=== PATIENT | male | born 1950 | race African-American/Black ===

== ENCOUNTER 2016-11-26 18:13 | Emergency (ER) | payer OTHER ==
[~2016-11-26] VITALS: Ht 180.3 cm; Wt 103.4 kg
[~2016-11-26 18:13] MED LIST: ACETAMINOPHEN325 MG PO; ACYCLOVIR 800800 MG PO; ASA5UEC PO; ASPIR 8181 MG PO; ASPIRIN EC325 M1 PO; ASPIRIN EC81 M1 PO; ASPIRIN325 PO; ATENOLOL 100MG100 M2 PO; ATENOLOL 100MG100 MG PO; ATIVAN1 MG PO; ATORVASTATIN CA20 MG PO; BACTRIM DS TAB1 EACH PO; BENTYL10 MG PO; CARAFATE 1 GM TA1 G1 PO; CARISOPRODOL 3350 MG PO; CELEXA20 MG PO; CHLORTHALIDONE25 MG PO; CLONIDINE-TTS0.3 MG TRANSDERM; CLONIDINE0.1 PO; COLACE100 MG PO; COZAAR 50 MG TA50 M2 PO; CYMBALTA60 MG PO; DESYREL100 MG PO; DIAZEPAM 5 MG5 M1 PO; DIOVAN320 MG PO; DOXYCYCLINE 10100 M1 PO; DULCOLAX5 MG PO; ERYTHROCIN STE250 MG PO; FAMVIR500 MG PO; FLEXERIL PO; GABAPENTIN100 MG PO; HUMALOG100 UNIT/1 SUBQ; HYDRALAZINE 5050 M1 OR; INDOMETHACIN 2525 MG PO; KEFLEX500 MG PO; KLONOPIN0.5 MG PO; LANTUS SC; LANTUS SUBQ; LANTUS100 UNIT/M SUBQ; LOPRESSOR 50 MG50 M1; LOPRESSOR PO; LOPRESSOR25 PO; LYRICA 50 MG50 MG PO; MIRTAZAPINE15 MG PO; MOBIC15 MG PO; NAPROSYN375 MG PO; NEURONTIN 300300 M1 PO; NEXIUM 40 MG CA40 M1 PO; NEXIUM PO; NEXIUM40 MG PO; NITROGLYCERIN0.4 MG SL; NORCO 10-325 T1 EAC1 PO; NORCO 10-325 T1 EACH PO; NORCO 5-325 TA1 EACH PO; NORVASC 5 MG TAB5 MG PO; NORVASC10 MG PO; NOVOLOG100 UNIT/1 SQ; NOVOLOG100 UNIT/1 SUBQ; OXYIR 5 MG CAPSU5 M1 PO; PAIN RELIEF PM1 EAC2 PO; PERCOCET 5-3251 EACH PO; PHENERGAN 25 MG25 M1 PO; PHENERGAN 25 MG25 MG PO; PHENERGAN50 MG RC; PRINIVIL10 MG PO; PROMETHAZINE HC50 M1 PO; PROMETHAZINE PO; REGLAN 10 MG TA10 MG PO; REMERON 30 MG T30 M1; REMERON 30 MG T30 M1 PO; REMERON15 MG PO; SIMVASTATIN40 MG PO; TIZANIDINE HCL4 M1 PO; TIZANIDINE HCL4 MG PO; TOPAMAX 100 MG100 MG PO; TOPAMAX200 MG PO; TOPROL XL25 MG PO; TRAMADOL 50 MG50 MG PO; ULTRAM 50MG TAB50 MG PO; VALSARTAN-HCTZ1 EAC4 PO; VERAPAMIL ER120 MG PO; VICODIN 5-5001 EACH PO; VICOPROFEN 2001 EACH PO; XARELTO15 MG PO; XARELTO20 MG PO; ZANAFLEX4 MG PO; ZOCOR40 MG PO; ZOFRAN ODT4 MG PO; ZYPREXA 10 MG T10 MG PO
[2016-11-26 18:56] LABS: URINE BILIRUBIN NEGATIVE (Negative); URINE BLOOD 3+ (Negative); URINE COLOR YELLOW; URINE GLUCOSE-RANDOM* 2+ (Negative); URINE KETONES TRACE (Negative); URINE LEUKOCYTES-REFLEX NEGATIVE (Negative); URINE PROTEIN (DIPSTICK) 2+ (Negative); URINE SPECIFIC GRAVITY >= 1.030 (1.003-1.035); URINE UROBILINOGEN 0.2 E.U./dl (0.2-1.0)
[2016-11-26 19:08] LABS: CASTS None Seen /LPF (None Seen); CRYSTALS None Seen /LPF (None Seen); SQUAMOUS None Seen /LPF (0-3); URINE RBC 0-2 Rare /HPF (0-2); URINE WBC-REFLEX 6-15 Few /HPF (0-5)
[2016-11-26 19:38] LABS: CALCIUM 9.2 mg/dL (8.5-10.1); CREATININE 1.7 mg/dL (0.7-1.3); POTASSIUM 4.3 mmol/L (3.5-5.1)
[2016-11-26 19:39] LABS: HEMATOCRIT 36.2 % (42.0-52.0); MCH 29.4 pg (26.0-34.0); MCHC 35.8 g/dL (28.0-37.0); MCV 82.2 fL (80.0-100.0); RBC 4.41 mil/uL (4.50-6.00); RDW 13.8 % (10.5-14.5); WBC 16.1 thou/uL (4.0-11.0)
[2016-11-26 19:41] LABS: MANUAL DIFF YES
[2016-11-26 19:44] LABS: DIRECT BILIRUBIN 0.3 mg/dL (<0.1-0.3); TOTAL BILIRUBIN 1.5 mg/dL (<0.1-1.0); TOTAL PROTEIN 8.5 g/dL (6.4-8.2)
[2016-11-26] MEDS ORDERED: HYDROCHLOROTHIA25 M2 PO (19:59)
[2016-11-26] MEDS ORDERED: AMBIEN 5 MG TABL5 M1 PO (20:00)
[2016-11-26] MEDS ORDERED: CARVEDILOL12.5 MG PO (20:01)
[2016-11-26] MEDS ORDERED: PHENERGAN 25 MG25 M1 PO ×2 (20:01→21:40)
[2016-11-26 20:02] LABS: ABSOLUTE NEUTROPHILS 13.7 thou/uL (1.4-8.2); ANISOCYTOSIS 1+; TOTAL CELL COUNT 100
[2016-11-26] MEDS ORDERED: LANTUS SOL100 UNIT/1 SUBQ (20:02)
[2016-11-26 20:03] LABS: POLYCHROMASIA OCCASIONAL
[2016-11-26 20:16] LABS: PLATELET COUNT 179 thou/uL (150-400)
[2016-11-26] MEDS ORDERED: PEPCID20 MG PO (21:40)
[2016-11-26] MEDS ORDERED: KEFLEX500 MG PO (21:40)
== END 2016-11-26 22:25 | disposition home or self-care (01) ==
LOC: ER 18:13
PROVIDERS: Emergency Medicine
DX: N39.0 Urinary tract infection, site not specified (principal); I10 Essential (primary) hypertension; E78.5 Hyperlipidemia, unspecified; K21.9 Gastro-esophageal reflux disease without esophagitis; I25.2 Old myocardial infarction; E11.40 Type 2 diabetes mellitus with diabetic neuropathy, unspecified; F32.9 Major depressive disorder, single episode, unspecified; M10.9 Gout, unspecified; M19.90 Unspecified osteoarthritis, unspecified site; Z88.5 Allergy status to narcotic agent; Z86.19 Personal history of other infectious and parasitic diseases; Z90.49 Acquired absence of other specified parts of digestive tract; Z95.5 Presence of coronary angioplasty implant and graft; Z88.8 Allergy status to other drugs, medicaments and biological substances; Z87.891 Personal history of nicotine dependence; Z79.4 Long term (current) use of insulin

== ENCOUNTER 2016-11-29 17:15 | Inpatient (IN) | payer OTHER ==
[~2016-11-29] VITALS: Ht 180.3 cm; Wt 107.0 kg
--- NOTE | ~2016-11-29 | HC ---
[facility] [place] [address] CONSULTATION Name: AUGUSTUSNELI Brad Room #: 311-P [facility] IN .R.#: [id number] Admission: 11/29/16 Attend Phys: Sean Acevedo MD Discharge: Date of : 54 Report #: [id number] THIS REPORT FOR: //name// CC: Devin Acevedo REASON FOR CONSULTATION: Acute kidney injury. REASON FOR PRESENTATION: Abdominal pain and diarrhea/ HISTORY OF PRESENT ILLNESS: This 66-year-old with past medical history of hypertension, diabetes mellitus, hyperlipidemia. He had GI illness in the form of nausea, vomiting, diarrhea and was taking losartan, hydrochlorothiazide when he presented to the emergency room. He had an extremely low blood pressure readings, he had a creatinine of 1.7 when he presented to the Emergency Room; however, he went on for about 8 hours without IV fluid and his creatinine had risen up to 4.7 thus mandating a nephrology consultation. Looking back at his trend the patient's creatinine back in 2016 was around 1.4. Other than the hypertension, there were no other nephrotoxins. The patient was admitted for further evaluation and management of his GI illnesses and I was asked to evaluate. PAST MEDICAL HISTORY: 1. Hypertension. 2. Diabetes mellitus. 3. Hyperlipidemia. 4. Status post vocal cord polyp removal. 5. Hepatitis C. 6. Diabetic neuropathy. 7. Coronary artery disease. 8. Appendectomy. 9. Depression. 10. Status post cholecystectomy. SOCIAL HISTORY: No drug or alcohol abuse. Former smoker. He quit a while ago. REVIEW OF SYSTEMS: GENERAL: Significant for dizziness and unsteadiness. CARDIOVASCULAR: No chest pain or palpitation. PULMONARY: No cough or hemoptysis. GASTROINTESTINAL: As per the history of present illness. GENITOURINARY: Decreased urine output. MUSCULOSKELETAL: No morning stiffness. PHYSICAL EXAMINATION: GENERAL: He is alert, oriented. VITAL SIGNS: Blood pressure is up to 170/93. [facility] [address] [place] [address] CONSULTATION Name: NELI COFFMAN Room #: 311-P [facility] IN [facility].#: [id number] Admission: 11/29/16 Attend Phys: Sean Acevedo MD Discharge: Date of : 54 Report #: [id number] HEAD AND NECK: No jugular venous distention, no bruit, no thyromegaly. CHEST: Clear to auscultation bilaterally. CARDIOVASCULAR: No rub detected. ABDOMEN: Slight tenderness, no guarding, no rigidity. LOWER EXTREMITIES: No edema. LABORATORY VALUES: Reviewed. His creatinine from today was pending; however, creatinine from yesterday was 4.7. ASSESSMENT, IMPRESSION AND PLAN: 1. Acute kidney injury. 2. Chronic kidney disease. 3. Hypertension. 4. Diabetes mellitus. 5. Gastrointestinal illness. 6. The patient's acute kidney injury is well explained by his hypovolemia. His blood pressure is better with normal saline running right now. I will reduce the dose of his normal saline. I will stop his losartan, hydrochlorothiazide, any other offending agents. 7. Gastrointestinal workup for his gastrointestinal illness. 8. Avoid hypertension. 9. Strict input and output. 10. Once his kidney function stabilizes, I will gently reintroduce his blood pressure medications. <ELECTRONICALLY SIGNED> By: Cele Freeman MD 12/02/16818 5 53 Cele Freeman MD /nt
--- NOTE | ~2016-11-29 | EKG ---
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
[~2016-11-29 17:15] MED LIST changes: +AMBIEN 5 MG TABL5 M1 PO; +CARVEDILOL12.5 MG PO; +HYDROCHLOROTHIA25 M2 PO; +LANTUS SOL100 UNIT/1 SUBQ; +PEPCID20 MG PO
[2016-11-29 17:17] VITALS: BP 99/51
[2016-11-29 17:52] LABS: HEMATOCRIT 30.6 % (42.0-52.0); MCH 28.8 pg (26.0-34.0); MCHC 35.5 g/dL (28.0-37.0); PLATELET COUNT 207 thou/uL (150-400); RBC 3.78 mil/uL (4.50-6.00); WBC 9.7 thou/uL (4.0-11.0)
[2016-11-29 17:53] LABS: HEMOGLOBIN 10.9 gm/dL (14.0-18.0)
[2016-11-29 17:54] LABS: MANUAL DIFF YES
[2016-11-29 17:56] LABS: ANION GAP 13 mmol/L (7-16); BUN 66 mg/dL (7-18); CALCIUM 8.4 mg/dL (8.5-10.1); CHLORIDE 87 mmol/L (98-107); CO2 24 mmol/L (21-32); GLUCOSE 349 mg/dL (74-106); POTASSIUM 3.2 mmol/L (3.5-5.1); SODIUM 124 mmol/L (136-145)
[2016-11-29 18:04] LABS: ALBUMIN 2.7 g/dL (3.4-5.0); ALKALINE PHOSPHATASE 170 U/L (46-116); SGOT 307 U/L (15-37); SGPT 175 U/L (30-65); TOTAL BILIRUBIN 0.6 mg/dL (<0.1-1.0); TOTAL PROTEIN 7.6 g/dL (6.4-8.2); TROPONIN-I < 0.04 ng/mL (<0.04-0.07)
[2016-11-29 18:15] LABS: TOTAL CELL COUNT 100
[2016-11-29 19:53] VITALS: BP 82/52
[2016-11-29 21:10] VITALS: BP 96/52
[2016-11-29 21:20] VITALS: BP 116/69
[2016-11-29 23:29] VITALS: BP 112/57
[2016-11-30 04:45] VITALS: BP 121/75
[2016-11-30 04:46] LABS: HEMATOCRIT 30.3 % (42.0-52.0); HEMOGLOBIN 10.6 gm/dL (14.0-18.0); MCH 28.6 pg (26.0-34.0); MCV 81.9 fL (80.0-100.0); RBC 3.7 mil/uL (4.50-6.00); RDW 13.8 % (10.5-14.5); WBC 7.4 thou/uL (4.0-11.0)
[2016-11-30 05:06] LABS: ALBUMIN 2.3 g/dL (3.4-5.0); CALCIUM 7.7 mg/dL (8.5-10.1); CREATININE 4.7 mg/dL (0.7-1.3); TOTAL BILIRUBIN 0.5 mg/dL (<0.1-1.0); TOTAL PROTEIN 6.6 g/dL (6.4-8.2)
[2016-11-30 05:14] LABS: POTASSIUM 2.9 mmol/L (3.5-5.1)
[2016-11-30 08:35] LABS: URINE BILIRUBIN NEGATIVE (Negative); URINE BLOOD 1+ (Negative); URINE COLOR YELLOW; URINE GLUCOSE-RANDOM* NEGATIVE (Negative); URINE KETONES NEGATIVE (Negative); URINE LEUKOCYTES-REFLEX NEGATIVE (Negative); URINE PROTEIN (DIPSTICK) 1+ (Negative); URINE UROBILINOGEN 0.2 E.U./dl (0.2-1.0)
[2016-11-30 08:44] VITALS: BP 151/89
[2016-11-30 08:50] LABS: AMP/METHAMP Negative (Negative); BARBITURATES Negative (Negative); BENZODIAZEPINES Negative (Negative); COCAINE Negative (Negative); METHADONE Negative (Negative); OPIATES Negative (Negative); PCP Negative (Negative); THC Negative (Negative)
[2016-11-30 09:15] LABS: CASTS None Seen /LPF (None Seen); CRYSTALS None Seen /LPF (None Seen); SQUAMOUS 0-3 Few /LPF (0-3); URINE RBC 0-2 Rare /HPF (0-2); URINE WBC-REFLEX 0-5 Rare /HPF (0-5)
[2016-11-30 16:08] VITALS: BP 126/70
[2016-11-30 17:06] LABS: HEPATITIS C VIRUS AB >11.0 (0.0-0.9)
[2016-11-30 18:32] LABS: URINE BILIRUBIN NEGATIVE (Negative); URINE BLOOD 1+ (Negative); URINE COLOR YELLOW; URINE GLUCOSE-RANDOM* NEGATIVE (Negative); URINE KETONES NEGATIVE (Negative); URINE NITRITE NEGATIVE (Negative); URINE PROTEIN (DIPSTICK) NEGATIVE (Negative); URINE UROBILINOGEN 0.2 E.U./dl (0.2-1.0)
[2016-11-30 18:38] LABS: URINE CREATININE-RANDOM* 71.7 mg/dL
[2016-11-30 18:50] LABS: BACTERIA None Seen /HPF (None Seen); CASTS None Seen /LPF (None Seen); CRYSTALS None Seen /LPF (None Seen); SQUAMOUS 0-3 Few /LPF (0-3); URINE RBC 3-10 Few /HPF (0-2); URINE WBC 0-5 Rare /HPF (0-5)
[2016-12-01 05:15] VITALS: BP 168/93
[2016-12-01 07:28] VITALS: BP 176/93
[2016-12-01 08:00] VITALS: BP 176/93
[2016-12-01 10:06] LABS: CALCIUM 6.8 mg/dL (8.5-10.1); POTASSIUM 3.4 mmol/L (3.5-5.1)
[2016-12-01 10:08] LABS: CREATININE 2.3 mg/dL (0.7-1.3)
[2016-12-01 10:12] LABS: ALBUMIN 2.1 g/dL (3.4-5.0); TOTAL BILIRUBIN 0.3 mg/dL (<0.1-1.0); TOTAL PROTEIN 5.9 g/dL (6.4-8.2)
[2016-12-01 15:17] VITALS: BP 124/66
[2016-12-01 19:38] VITALS: BP 146/72
[2016-12-02 03:27] VITALS: BP 164/85
[2016-12-02 07:08] LABS: ALBUMIN 2.4 g/dL (3.4-5.0); CALCIUM 8.4 mg/dL (8.5-10.1); CREATININE 1.6 mg/dL (0.7-1.3); POTASSIUM 3.7 mmol/L (3.5-5.1)
[2016-12-02 07:41] VITALS: BP 171/96
[2016-12-02 10:12] VITALS: BP 171/96
[2016-12-02 15:16] VITALS: BP 171/96
[2016-12-02 15:49] VITALS: BP 171/96
== END 2016-12-02 16:10 | disposition home or self-care (01) | DRG 682 ==
LOC: ER 17:15 → EROBS 18:49 → ER 18:49 → EROBS 19:56 → 3N 19:56 → ENTRNSPT 12-02 15:52 → EDTRNSPTSTS 12-02 15:53 → 3N 12-02 16:10
PROVIDERS: Hospitalist; Internal Medicine; Physician Assistant
PROC: 02H633Z Insertion of Infusion Device into Right Atrium, Percutaneous Approach (ICD-10-PCS; principal; 2016-11-30)
DX: N17.0 Acute kidney failure with tubular necrosis (principal); E43 Unspecified severe protein-calorie malnutrition; E87.1 Hypo-osmolality and hyponatremia; N18.3 Chronic kidney disease, stage 3 (moderate); E78.5 Hyperlipidemia, unspecified; K21.9 Gastro-esophageal reflux disease without esophagitis; E11.40 Type 2 diabetes mellitus with diabetic neuropathy, unspecified; F32.9 Major depressive disorder, single episode, unspecified; M10.9 Gout, unspecified; E86.0 Dehydration; I12.9 Hypertensive chronic kidney disease with stage 1 through stage 4 chronic kidney disease, or unspecified chronic kidney disease; E11.22 Type 2 diabetes mellitus with diabetic chronic kidney disease; I95.9 Hypotension, unspecified; E87.8 Other disorders of electrolyte and fluid balance, not elsewhere classified; R74.0 Nonspecific elevation of levels of transaminase and lactic acid dehydrogenase [LDH]; I25.10 Atherosclerotic heart disease of native coronary artery without angina pectoris; I25.2 Old myocardial infarction; Z90.89 Acquired absence of other organs; Z90.49 Acquired absence of other specified parts of digestive tract; Z95.1 Presence of aortocoronary bypass graft; Z88.8 Allergy status to other drugs, medicaments and biological substances; Z87.891 Personal history of nicotine dependence
CPT/HCPCS: 10096

== ENCOUNTER 2016-12-14 16:06 | Inpatient (IN) | payer OTHER ==
[~2016-12-14] VITALS: Ht 180.3 cm; Wt 109.8 kg
--- NOTE | ~2016-12-14 | EEG ---
[facility] [place] [address] ELECTROENCEPHALOGRAM Name: NELI COFFMAN Room #: 439-P [facility] IN M.R.#: [id number] Admission: 12/14/16 Attend Phys: Ariel Nixon DO Discharge: 12/20/16 Date of : 54 Report #: [id number] THIS REPORT FOR: //name// CC: Devin Nixon DATE OF SERVICE: 12/18/2016 This patient is being evaluated for syncope. EEG was done by placing the electrodes by standard 10-20 system of electrode placement. Both referential and sequential montages were used for recording. Background activity appeared to be about 10-11 Hz and 40 microvolts. It is a symmetrical activity. Photic stimulation was unremarkable. The patient appeared to be asleep during part of this EEG and that is associated with bilateral slowing and vertex sharp waves. Throughout the record, no active epileptiform activity was noticed. IMPRESSION: Mild intermixed theta range slowing, which is a nonspecific finding which can occur with drowsiness, effect of psychotropic medication, encephalopathy, etc. It is a nonspecific and mild finding. No active epileptiform activity was noticed. Thank you very much for this referral and if you have any questions, please feel free to contact me. <ELECTRONICALLY SIGNED> By: Sonny Gudino MD 12/23/16 0908 [id number] 42 Sonny Gudino MD /edwar
--- NOTE | ~2016-12-14 | 2DMMODE ---
[facility] [address] [place] [address] 2 D/M-MODE ECHOCARDIOGRAM Name: NELI COFFMAN Room #: 439-P [facility] IN ..#: [id number] Admission: 12/14/16 Attend Phys: Ariel Nixon, Discharge: Date of : 54 Date of Service: 12/19/16 1324 Report #: [id number] THIS REPORT FOR: //name// APPROVED REPORT Study performed: 12/19/2016 12:40:33 EXAM: Comprehensive 2D, Doppler, and color-flow Echocardiogram Patient Location: Echo lab Room #: 439 Status: routine BSA: 2.29 HR: 100 bpm BP: 177/88 mmHg Rhythm: Tachycardia Other Information Study Quality: Adequate Indications Syncope Hx: WA, CABG, stents, HTN, HLP, DM 2D Dimensions RVDd: 36.55 mm LVEF(%): 53.47 (>50%) IVSd: 13.07 (7-11mm) LVOT Diam: 23.89 (18-24mm) LVDd: 41.73 mm PWd: 11.54 (7-11mm) Ascending Ao: 37.48 (22-36mm) LVDs: 30.35 (25-40mm) Aortic Root: 36.37 mm Farrell's LVEF: 53.47 % Volumes Left Atrial Volume (Systole) Single Plane 4CH: 84.88 mL Single Plane 2CH: 63.56 mL LA ESV Index: 35.00 mL/m2 Aortic Valve AoV Peak Omkar.: 1.58 m/s AO Peak Gr.: 10.01 mmHg LVOT Max P.08 mmHg LVOT Max V: 1.23 m/s SLIM Vmax: 3.49 cm2 Mitral Valve E/A Ratio: 0.6 [facility] [place] [address] 2 D/M-MODE ECHOCARDIOGRAM Name: NELI COFFMAN Room #: 439-P [facility] IN .R.#: [id number] Admission: 12/14/16 Attend Phys: Ariel Nixon, Discharge: Date of : 54 Date of Service: 12/19/16 1324 Report #: [id number] MV Decel. Time: 207.94 ms MV E Max Omkar.: 0.58 m/s MV A Omkar.: 0.96 m/s MV PHT: 60.30 ms IVRT: 55.36 ms Pulmonary Valve PV Peak Omkar.: 1.39 m/s PV Peak Gr.: 7.72 mmHg Pulmonary Vein P Vein S: 0.53 m/s P Vein A: 0.36 m/s P Vein D: 0.33 m/s P Vein A Dur.: 87.7 msec P Vein S/D Ratio: 1.61 Tricuspid Valve TR Peak Omkar.: 3.09 m/s RAP Estimate: 5.00 mmHg TR Peak Gr.: 38.20 mmHg PA Pressure: 43.00 mmHg Left Ventricle The left ventricle is normal size. There is normal LV segmental wall motion. Mild concentric left ventricular hypertrophy. Left ventricular systolic function is normal. LVEF is 60%. Mild diastolic dysfunction is present (impaired relaxation pattern). Right Ventricle The right ventricle is normal size. The right ventricular systolic function is normal. Atria Left atrium is mildly dilated. The right atrium size is normal. Aortic Valve The aortic valve is normal in structure. No aortic regurgitation is present. There is no aortic valvular stenosis. Mitral Valve The mitral valve is normal in structure. Trace mitral regurgitation. Tricuspid Valve The tricuspid valve is normal in structure. Trace tricuspid regurgitation. Estimated PAP is 40-45mmHg. Pulmonic Valve [address] [address] 2 D/M-MODE ECHOCARDIOGRAM Name: NELI COFFMAN Room #: 439-P [facility] IN [facility]#: [id number] Admission: 12/14/16 Attend Phys: Ariel Nixon, Discharge: Date of : 54 Date of Service: 12/19/16 1324 Report #: [id number] The pulmonary valve is normal in structure. Trace pulmonic regurgitation. Great Vessels The aortic root is normal in size. The ascending aorta is normal in size. IVC is normal in size and collapses >50% with inspiration. Pericardium There is no pericardial effusion. <Conclusion> The left ventricle is normal size. LVEF is 60%. Left atrium is mildly dilated. The aortic valve is normal in structure. The mitral valve is normal in structure. Trace mitral regurgitation. The tricuspid valve is normal in structure. Trace tricuspid regurgitation. Estimated PAP is 40-45mmHg. The pulmonary valve is normal in structure. Trace pulmonic regurgitation. <ELECTRONICALLY SIGNED> By: Devang Samano MD 12/19/16 1324 132 Devang Samano MD /INF
--- NOTE | ~2016-12-14 | P ---
[facility] [place] [address] PROCEDURE REPORT Name: NELI COFFMAN Room #: 439-P [facility] IN M.R.#: [id number] Admission: 12/14/16 Attend Phys: Ariel Nixon DO Discharge: Date of : 54 Report #: [id number] THIS REPORT FOR: //name// CC: Devin Nixon DATE OF SERVICE: 12/15/2016 INPATIENT UPPER ENDOSCOPY BRIEF HISTORY: The patient is a 66-year-old male with multiple medical problems including reflux and previous surgeries. The patient tells me he has had antireflux procedures with first in the 1970s and most recent about 2008. He has intermittent dysphagia and has been seen by multiple gastroenterologists with previous endoscopies and esophageal dilations. At this time, he describes nausea, vomiting, he described dysphagia. He also has diabetes. He recently had severe nausea and vomiting resulting in acute kidney injury requiring hydration. PREOPERATIVE DIAGNOSIS: Dysphagia, nausea and vomiting. POSTOPERATIVE DIAGNOSES: 1. Moderate diffuse antral gastritis. 2. Changes of gastroesophageal junction consistent with previous surgery. 3. Dysphagia. 4. Small hiatus hernia. 5. Retained liquids within stomach. MEDICATIONS: Deep sedation with propofol per anesthesia. SPECIMEN: Biopsies of gastritis. ESTIMATED BLOOD LOSS: 3 mL. PROCEDURE: Esophagogastroduodenoscopy with esophageal dilation over a wire. FINDINGS: Prior to propofol sedation, procedure of upper endoscopy discussed with the patient as well as potential risks and its complications. He indicates he understands and desires to proceed. DESCRIPTION OF PROCEDURE: With the patient in left lateral decubitus position, the Fuji video endoscope was inserted in the cervical esophagus under direct vision without difficulty. Examination of this organ through its entire length revealed normal esophageal mucosa. As we advanced the scope, he was noted to have ____. However, the esophagus was not dilated. In addition, a small hiatus [facility] [address] [place] [address] PROCEDURE REPORT Name: NELI COFFMAN Room #: 439-P [facility] IN [facility].#: [id number] Admission: 12/14/16 Attend Phys: Ariel Nixon DO Discharge: Date of : 54 Report #: [id number] hernia of about 2 cm was seen. The squamocolumnar junction was normal. No ulcers, erosions, strictures or masses of Olvera mucosa was seen. The scope passed easily through the diaphragmatic hiatus into the stomach. Examination of the stomach did reveal some retained liquids within the stomach, which was aspirated away. It was bilious in color. After removal of the fluid from the stomach, the stomach was examined on end view as well as retroflexed views. There was a diffuse gastritis. No ulcers or erosions were seen. There was no evidence of outlet obstruction. Upon retroflexion of the scope, the folds in the cardia of the stomach appeared to be irregular consistent with previous surgery. Scope was advanced across the pylorus was unremarkable. There is no evidence of outlet obstruction. The scope was advanced down about the third portion of duodenum, which appeared to be unremarkable. Again, there is no evidence of obstruction. At that point, the scope was slowly withdrawn and careful circumferential views were obtained. In addition, a guidewire was passed through the biopsy channel of the scope, and the scope was withdrawn over the guidewire. After removal of the scope, he was dilated with passage of 51-Cameroonian Savary dilator over the wire. This is similar to what has been done in the past. The patient tolerated the procedure well. DISPOSITION: The patient with nausea, vomiting, dysphagia. He reports he has had success with dilation in the past. He has had previous surgeries as noted above. We will see how he does following dilation today. There was a fair amount of fluid in the stomach, so we will obtain a gastric emptying study for further evaluation. He should return for dilation on an as needed basis. He should take his acid suppression, which is helpful to control his reflux symptoms in spite of his multiple surgeries. <ELECTRONICALLY SIGNED> By: Avinash Tapia MD 12/15/16 1949 1445 185 Avinash Tapia MD /nt
--- NOTE | ~2016-12-14 | S ---
[facility] [place] [address] SURGICAL PATH RPT PROCEDURE Name: NELI LOTT Room #: 439-P ADM IN M.R.#: [id number] Admission: 12/14/16 Date of : 54 Discharge: Report #: [id number] Path Case #: [id number] PATHOLOGY REPORT COLLECTION DATE: 12/15/2016 RECEIVED DATE: 12/15/2016 SUBMITTING PHYS: Dr. Avinash Tapia OTHER PHYS: Dr. Ariel Arias SPECIMEN(S) RECEIVED: A.Gastritis biopsy * * * * * * * * * * * * FINAL DIAGNOSIS: Stomach, biopsy: - Mild chronic inactive gastritis. - An H. Pylori immunostain is negative (Block A1; appropriately reactive control). PATHOLOGIST: Tomas Silva M.D. REPORT ELECTRONICALLY SIGNED BY: Tomas Silva M.D. DATE/TIME: 12/16/2016 11:11 * * * * * * * * * * * * GROSS PATHOLOGY: The specimen is received in formalin, labeled "Neli Lott and biopsy of gastritis", are multiple irregular fragment of monaco soft tissue ranging from 0.2 up to 0.7 cm in greatest dimension and measuring 0.7 x 0.5 x 0.2 cm in aggregate. Entirely submitted in A1. (SWS; 12/15/2016) CLINICAL HISTORY: Abdomen pain, dysphagia, gastritis INITIAL CPT CODE(S): A; 41821, 09777 Professional services performed by [facility] at [facility] [address] [place] [address] Technical services performed by [facility] at [address] [place] [address], [facility] [address] [place] [address]. [facility] [address] [place] [address] SURGICAL PATH RPT PROCEDURE Name: NELI LOTT Room #: 439-P ADM IN M.R.#: [id number] Admission: 12/14/16 Date of : 54 Discharge: Report #: [id number] Path Case #: [id number] [facility] [address] [address] PHONE: [phone] DIRECTOR: Eulogio Alicea M.D. * * * END OF REPORT * * *
--- NOTE | ~2016-12-14 | EKG ---
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1950 Requested By: Sebastian Warren Order Number: [id number] MD: Heath Solis Measurements Intervals Waterman Rate: 70 P: 45 MI: 162 QRS: 7 QRSD: 120 T: 142 QT: 391 QTc: 422 Interpretive Statements Sinus rhythm Abnormal T, consider ischemia, lateral leads Possible inferior infarct, old Compared to ECG 11/29/2016 17:34:05 No significant change was found Electronically Signed On 12-15-2016 8:41:19 CDT by Heath Solis [email or web address] <ELECTRONICALLY SIGNED> By: Heath Solis MD, [facility] 12/15/16 0841 1612 161 Heath Solis MD, [facility] /EPI
[2016-12-14 16:07] VITALS: BP 126/61
[2016-12-14 16:47] LABS: ABSOLUTE NEUTROPHILS 2.8 thou/uL (1.4-8.2); BASOPHILS 0.8 % (0.0-2.0); EOSINOPHILS 2.2 % (0.0-3.0); HEMATOCRIT 28.9 % (42.0-52.0); HEMOGLOBIN 10.2 gm/dL (14.0-18.0); LYMPHOCYTES 28.9 % (24.0-44.0); MCH 29.9 pg (26.0-34.0); MCHC 35.1 g/dL (28.0-37.0); MCV 85.2 fL (80.0-100.0); MONOCYTES 7.6 % (1.0-8.0); PLATELET COUNT 107 thou/uL (150-400); POLYS 60.5 % (36.0-66.0); RBC 3.39 mil/uL (4.50-6.00); RDW 15.1 % (10.5-14.5); WBC 4.6 thou/uL (4.0-11.0)
[2016-12-14] MEDS ORDERED: CHLORTHALIDONE25 MG PO (16:50)
[2016-12-14] MEDS ORDERED: ATORVASTATIN CA40 MG PO (16:50)
[2016-12-14] MEDS ORDERED: KLOR-CON M2020 MEQ PO (16:51)
[2016-12-14 16:52] LABS: MANUAL DIFF NO
[2016-12-14 17:07] LABS: ANION GAP 9 mmol/L (7-16); BUN 23 mg/dL (7-18); CALCIUM 7.8 mg/dL (8.5-10.1); CHLORIDE 106 mmol/L (98-107); CO2 24 mmol/L (21-32); CREATININE 1.7 mg/dL (0.7-1.3); GLUCOSE 193 mg/dL (74-106); POTASSIUM 4.5 mmol/L (3.5-5.1); SODIUM 139 mmol/L (136-145)
[2016-12-14 17:12] LABS: ALBUMIN 3.1 g/dL (3.4-5.0); ALKALINE PHOSPHATASE 87 U/L (46-116); DIRECT BILIRUBIN 0.1 mg/dL (<0.1-0.3); SGOT 26 U/L (15-37); SGPT 29 U/L (30-65); TOTAL BILIRUBIN 0.4 mg/dL (<0.1-1.0); TOTAL PROTEIN 6.2 g/dL (6.4-8.2); TROPONIN-I < 0.04 ng/mL (<0.04-0.07)
[2016-12-14 18:46] VITALS: BP 126/61
[2016-12-14 19:40] VITALS: BP 150/69
[2016-12-14 20:25] VITALS: BP 164/88
[2016-12-14 23:55] VITALS: BP 144/86
[2016-12-15 04:20] VITALS: BP 118/63
[2016-12-15 05:28] LABS: ABSOLUTE NEUTROPHILS 1.6 thou/uL (1.4-8.2); EOSINOPHILS 3.1 % (0.0-3.0); HEMATOCRIT 31.1 % (42.0-52.0); HEMOGLOBIN 10.4 gm/dL (14.0-18.0); LYMPHOCYTES 44.2 % (24.0-44.0); MCH 28.8 pg (26.0-34.0); MCHC 33.5 g/dL (28.0-37.0); MCV 85.9 fL (80.0-100.0); MONOCYTES 7.8 % (1.0-8.0); PLATELET COUNT 106 thou/uL (150-400); POLYS 43.9 % (36.0-66.0); RBC 3.62 mil/uL (4.50-6.00); RDW 15.6 % (10.5-14.5); WBC 3.7 thou/uL (4.0-11.0)
[2016-12-15 05:29] LABS: MANUAL DIFF NO
[2016-12-15 05:38] LABS: CREATININE 1.1 mg/dL (0.7-1.3); POTASSIUM 4.7 mmol/L (3.5-5.1)
[2016-12-15 08:00] VITALS: BP 150/81
[2016-12-15 16:00] VITALS: BP 162/91
[2016-12-15 19:20] VITALS: BP 140/68
[2016-12-16 04:10] VITALS: BP 171/87
[2016-12-16 07:45] VITALS: BP 164/85
[2016-12-16 13:11] VITALS: BP 164/85
[2016-12-16 16:10] VITALS: BP 172/83
[2016-12-16 19:30] VITALS: BP 181/97
[2016-12-16 23:30] VITALS: BP 157/86
[2016-12-17 04:00] VITALS: BP 182/98
[2016-12-17 08:01] VITALS: BP 184/90
[2016-12-17 15:45] VITALS: BP 157/77
[2016-12-17 20:20] VITALS: BP 186/92
[2016-12-18 04:14] VITALS: BP 179/94
[2016-12-18 08:00] VITALS: BP 186/91
[2016-12-18 16:00] VITALS: BP 176/77
[2016-12-18 19:44] VITALS: BP 170/85
[2016-12-19 03:57] VITALS: BP 187/88
[2016-12-19 08:00] VITALS: BP 177/88
[2016-12-19 10:05] LABS: FOLIC ACID 13.9 ng/mL (8.6-58.9)
[2016-12-19 16:00] VITALS: BP 170/88
[2016-12-19 19:11] LABS: GLYCOHEMOGLOBIN (HGB A1C) 9.1 % (4.8-5.6)
[2016-12-19 19:49] VITALS: BP 156/70
[2016-12-20 07:21] VITALS: BP 167/76
[2016-12-20] MEDS ORDERED: ERYTHROMYCIN250 M1 PO (08:21)
[2016-12-20] MEDS ORDERED: TOPAMAX50 MG PO (08:22)
[2016-12-20] MEDS ORDERED: AMLODIPINE BESY10 MG PO (08:22)
[2016-12-20 08:56] VITALS: BP 167/76
== END 2016-12-20 11:29 | disposition home or self-care (01) | DRG 682 ==
LOC: ER 16:06 → 4S 18:17 → EROBS 18:17 → 4S 20:27
PROVIDERS: Family Medicine; Nurse Practitioner; Psychiatry & Neurology Neurology
PROC: 0DB68ZX Excision of Stomach, Via Natural or Artificial Opening Endoscopic, Diagnostic (ICD-10-PCS; principal; 2016-12-15)
PROC: 0D758ZZ Dilation of Esophagus, Via Natural or Artificial Opening Endoscopic (ICD-10-PCS; 2016-12-15)
PROC: B5181ZA Fluoroscopy of Superior Vena Cava using Low Osmolar Contrast, Guidance (ICD-10-PCS; 2016-12-17)
PROC: 02HV33Z Insertion of Infusion Device into Superior Vena Cava, Percutaneous Approach (ICD-10-PCS; 2016-12-17)
PROC: B548ZZA Ultrasonography of Superior Vena Cava, Guidance (ICD-10-PCS; 2016-12-17)
DX: N17.0 Acute kidney failure with tubular necrosis (principal); G93.40 Encephalopathy, unspecified; D61.818 Other pancytopenia; E44.0 Moderate protein-calorie malnutrition; I10 Essential (primary) hypertension; E78.5 Hyperlipidemia, unspecified; K21.9 Gastro-esophageal reflux disease without esophagitis; M19.90 Unspecified osteoarthritis, unspecified site; E11.40 Type 2 diabetes mellitus with diabetic neuropathy, unspecified; M10.9 Gout, unspecified; F32.9 Major depressive disorder, single episode, unspecified; K29.70 Gastritis, unspecified, without bleeding; K44.9 Diaphragmatic hernia without obstruction or gangrene; R13.10 Dysphagia, unspecified; K30 Functional dyspepsia; I25.2 Old myocardial infarction; Z90.49 Acquired absence of other specified parts of digestive tract; Z95.1 Presence of aortocoronary bypass graft; Z95.5 Presence of coronary angioplasty implant and graft; Z79.4 Long term (current) use of insulin; Z79.899 Other long term (current) drug therapy; Z88.6 Allergy status to analgesic agent; Z88.8 Allergy status to other drugs, medicaments and biological substances; Z87.891 Personal history of nicotine dependence; Z68.33 Body mass index [BMI] 33.0-33.9, adult
CPT/HCPCS: 10100; 62110; 62900; 70005

== ENCOUNTER → 2017-05-29 | Outpatient (CLI) | payer OTHER ==
[~2017-05-29] MED LIST changes: +AMLODIPINE BESY10 MG PO; +ATORVASTATIN CA40 MG PO; +ERYTHROMYCIN250 M1 PO; +KLOR-CON M2020 MEQ PO; +TOPAMAX50 MG PO
== END ==
LOC: RAD 10:12
DX: Z45.2 Encounter for adjustment and management of vascular access device (principal)

== ENCOUNTER → 2017-06-01 | Outpatient (CLI) | payer OTHER ==
[~2017-06-01] VITALS: Ht 180.3 cm; Wt 112.5 kg
[2017-06-01 12:11] VITALS: BP 184/95
== END | disposition home or self-care (01) ==
LOC: SPEC 06:24
DX: Z45.2 Encounter for adjustment and management of vascular access device (principal); I11.0 Hypertensive heart disease with heart failure; I50.9 Heart failure, unspecified; E78.5 Hyperlipidemia, unspecified; I25.2 Old myocardial infarction; E11.40 Type 2 diabetes mellitus with diabetic neuropathy, unspecified; J44.9 Chronic obstructive pulmonary disease, unspecified; M10.9 Gout, unspecified; K21.9 Gastro-esophageal reflux disease without esophagitis; B19.20 Unspecified viral hepatitis C without hepatic coma; F32.9 Major depressive disorder, single episode, unspecified; F41.9 Anxiety disorder, unspecified; M19.90 Unspecified osteoarthritis, unspecified site; Z90.49 Acquired absence of other specified parts of digestive tract; Z98.890 Other specified postprocedural states; Z95.1 Presence of aortocoronary bypass graft; Z86.73 Personal history of transient ischemic attack (TIA), and cerebral infarction without residual deficits; Z82.49 Family history of ischemic heart disease and other diseases of the circulatory system; Z83.3 Family history of diabetes mellitus